=== PATIENT | male | born 1985 | race Two or more races ===

== ENCOUNTER 2017-03-16 00:57 | Inpatient (IN) | payer OTHER ==
[~2017-03-16] VITALS: Ht 182.9 cm; Wt 119.7 kg
--- NOTE | 2017-03-16 01:03 | NUR ---
PT BIB [facility] WITH A C/O RLE PAIN. 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 PT STATED THAT THE AMPUTATION WAS JUST THIS PAST OCTOBER AND THEN HE GOT OSTEOMYLITIS AND HAS A FURTHER AMUPUTATION. PT IS WORRIED THAT THERE MAY BE SOMETHING WRONG AND WANTS TO MAKE SURE THAT HE DOES NOT HAVE OSTEOMYLITIS AGAIN. PT WAS AT A TREATMENT CENTER TO GET OFF THE PAIN MEDICATION FROM SX. PT STATED THAT HE HAS BEEN TAKING IBUPROPHEN AND TYLENOL FOR THE PAIN. PT STATED THAT THE PAIN IS NOW 9/10.
--- NOTE | 2017-03-16 01:05 | NUR ---
DR. SANDY IS AT THE BEDSIDE.
--- NOTE | 2017-03-16 01:15 | NUR ---
XRAY IN PROGRESS AT THE BEDSIDE.
--- NOTE | 2017-03-16 01:16 | NUR ---
BLOOD DRAWN AND BLOOD CULTURES X2 DRAWN.
[2017-03-16] MEDS ORDERED: ONDANSETRON HCL/PF 4 MG/2 ML VIAL ONE (01:18)
[2017-03-16] MEDS ORDERED: MORPHINE SULFATE INJ 4 MG/ML DISP.SYRIN ONE (01:18)
--- NOTE | 2017-03-16 01:23 | NUR ---
PT REC'ING MEDICATION ORDERED.
[2017-03-16 01:24] LABS: BASOPHILS % (AUTO) 0.3 % (0.0-2.0); EOSINOPHILS # (AUTO) 0.9 /CMM (0.0-0.7); EOSINOPHILS % (AUTO) 5.5 % (0.0-6.0); HEMATOCRIT 35 % (39-51); HEMOGLOBIN 11.2 g/dL (13.5-17.5); LYMPHOCYTES # (AUTO) 2.5 /CMM (0.8-4.8); MEAN CORPUSCULAR HEMOGLOBIN 25 PG (26.0-33.0); MEAN CORPUSCULAR HGB CONC 32 g/dl (31.0-36.0); MEAN CORPUSCULAR VOLUME 77 fL (80-96); MONOCYTES # (AUTO) 1.2 /CMM (0.1-1.30); MONOCYTES % (AUTO) 7.3 % (2.0-12.0); NEUTROPHILS # (AUTO) 11.9 /CMM (1.8-8.9); NEUTROPHILS % (AUTO) 71.9 % (43.0-81.0); PLATELET COUNT (AUTO) 377 /CMM (150-450); RDW COEFFICIENT OF VARIATION 16.3 (11.5-15.0); WHITE BLOOD COUNT (AUTO) 16.5 K/uL (4.3-11.0)
[2017-03-16] MEDS ORDERED: ONDANSETRON HCL/PF 4 MG/2 ML VIAL IV ONE (01:30)
[2017-03-16] MEDS ORDERED: MORPHINE SULFATE INJ 2 MG/ML DISP.SYRIN IV ONE (01:30)
[2017-03-16 01:39] LABS: INR 0.95 (0.87-1.13); PROTHROMBIN TIME 9.9 SECS (9.5-12.7)
[2017-03-16 01:41] LABS: CALCIUM, SERUM 9.1 mg/dL (8.5-10.1); CREATININE 0.9 mg/dL (0.6-1.3); POTASSIUM 3.3 mmol/L (3.5-5.1)
[2017-03-16 01:47] LABS: ALBUMIN 3.6 g/dL (3.4-5.0); BILIRUBIN,TOTAL 0.2 mg/dL (0.2-1.0); TOTAL PROTEIN, SERUM 7.1 g/dL (6.4-8.2)
[2017-03-16] MEDS ORDERED: LINEZOLID RTU BAG 600 MG in PREMIX 1 EA IV SCH (02:00)
[2017-03-16] MEDS ORDERED: CEFTRIAXONE 1GM BAG (ER ONLY) 1 GM/50 ML PIGGYBACK IV ONE (02:00)
[2017-03-16] MEDS ORDERED: CEFTRIAXONE 1 G VIAL ONE (02:05)
--- NOTE | 2017-03-16 02:12 | NUR ---
CALLING REPOR TO CURT BELTRE
--- NOTE | 2017-03-16 02:18 | NUR ---
ENDORSING ZYVOX INFUSION TO MS CURT.
[2017-03-16] MEDS ORDERED: ACETAMINOPHEN 325 MG TABLET PO PRN (02:30)
[2017-03-16] MEDS ORDERED: Z GUARD REMEDY 2 OZ OINT TP PRN (02:30)
[2017-03-16] MEDS ORDERED: ZOLPIDEM TARTRATE 5 MG TABLET PO PRN (02:30)
[2017-03-16] MEDS ORDERED: MAGNESIUM HYDROXIDE 30 ML UDC PO PRN (02:30)
[2017-03-16] MEDS ORDERED: HYDROCODONE/APAP 5/325MG 1 EACH TABLET PO PRN (02:30)
[2017-03-16] MEDS ORDERED: ONDANSETRON HCL/PF 4 MG/2 ML VIAL IVP PRN (02:30)
--- NOTE | 2017-03-16 02:30 | NUR ---
MS RN NOTE RECEIVED PATIENT AWAKE AND ALERT IN BED. NO SOB NOTED. PATIENT STATES THAT HE IS HAVING 9/10 PAIN TO RIGHT STUMP. RELAXATION TECHNIQUES PROVIDED. PATIENT STATES THAT NORCO 10/325MG DOESN'T WORK FOR HIM. HE WOULD LIKE MORPHINE. WILL NOTIFY MD. ALL BELONGINGS CHECKED AND ACCOUNTED FOR. ORIENTED TO ROOM AND TO UNIT. BED LOCKED AND IN LOWEST POSITION. SIDE RAILS UP, CALL LIGHT WITHIN REACH. WILL CONTINUE TO MONITOR.
[2017-03-16 02:40] VITALS: BP 134/71
[2017-03-16] MEDS ORDERED: LINEZOLID RTU BAG 300 ML IV ONE (02:58)
[2017-03-16] MEDS: IV NS 0.9% 1,000 ML IV PRN (03:11)
[2017-03-16] MEDS ORDERED: HYDROCODONE/APAP 10/325MG 1 EA TABLET ONE (03:14)
[2017-03-16] MEDS: HYDROCODONE/APAP 10/325MG 1 EA TABLET PO PRN (03:16)
[2017-03-16] MEDS ORDERED: MORPHINE SULFATE INJ 2 MG/ML DISP.SYRIN ONE (04:02)
[2017-03-16] MEDS ORDERED: PIPERACILLIN /TAZOBACTAM 2.25 G VIAL IV ONE (04:07)
[2017-03-16] MEDS: MORPHINE SULFATE INJ 2 MG/ML DISP.SYRIN IV PRN ×8 (04:15→23:57)
[2017-03-16] MEDS ORDERED: PIPERACILLIN /TAZOBACTAM 4.5 G in IV D5W 50 ML IV SCH (05:00)
[2017-03-16] MEDS ORDERED: IBUP-1958 PO (05:46)
[2017-03-16] MEDS ORDERED: LEVO750T46 PO (05:46)
[2017-03-16] MEDS ORDERED: GABA-534 PO (05:46)
[2017-03-16] MEDS ORDERED: DOXE50CA4 PO (05:46)
[2017-03-16] MEDS ORDERED: DULO60CA45 PO (05:46)
[2017-03-16] MEDS ORDERED: PRAZ5CAP2 PO (05:46)
[2017-03-16] MEDS ORDERED: AMLO5TAB2 PO (05:46)
[2017-03-16] MEDS ORDERED: CYCL10TA9 PO (05:46)
[2017-03-16] MEDS ORDERED: LITH300T PO (05:46)
[2017-03-16] MEDS ORDERED: HYDR10SY12 GT (05:46)
[2017-03-16] MEDS ORDERED: ARIP5TAB10 PO (05:46)
--- NOTE | 2017-03-16 06:40 | NUR ---
MS RN NOTE PATIENT STABLE. SLEEPING AT THIS TIME. ALL NEEDS MET AND ATTENDED TO. WILL ENDORSE TO DAY SHIFT FOR NAZARIO.
[2017-03-16 08:00] VITALS: BP 119/68
--- NOTE | 2017-03-16 08:00 | NUR ---
MS RN NOTES PATIENT IN BED RESTING NO SOB OR ACUTE DISTRESS. PATIENT ALERT, ORIENTED X4. IN BED RESTING. REPORTS PAIN 9/10. WILL WORK WITH PATIENT TO MANAGE PAIN. BED IN LOW LOCKED POSITION , CALL LIGHT WITHIN REACH. WILL CONTINUE TO MONITOR.
--- NOTE | 2017-03-16 09:00 | NUR ---
MS RN NOTES PATIENT REPORTS MORPHINE 2MG IS NOT EFFECTIVE TO CONTROL HIS PAIN, PATIENT STATES HE WAS USING FENTANYL PATCH AT HOME. CALLED DR. NORTON STATES TO CONTINUE FENTANYL PATCH HE WAS TAKING FENTANYL AT HOME. PATIENT REFUSED FENTANYL PATCH REQUEST MORPHINE TO BE INCREASED TO 4MG EVERY [address] NORTON STATES TO CONTINUE MORPHINE 2MG OR FENTANYL PATCH PATIENT REFUSES FENTANYL PATCH WANTS TO CONTINUE MORPHINE 2MG. NOTED AND CARRIED OUT.
[2017-03-16] MEDS: LINEZOLID RTU BAG 600 MG in PREMIX 1 EA IV SCH ×2 (09:15→20:01)
[2017-03-16] MEDS ORDERED: POTASSIUM CHLORIDE 20 MEQ TAB.PRT.SR PO ONE (10:00)
[2017-03-16] MEDS: MAG HYDROX/AL HYDROX/SIMETH 30 ML UDC PO PRN (11:24)
[2017-03-16] MEDS: PIPERACILLIN /TAZOBACTAM 3.375 G in IV D5W 50 ML IV SCH ×3 (12:23→23:57)
--- NOTE | 2017-03-16 12:30 | NUR ---
MS RN NOTES PATIENT SEEN AND EVALUATED BY DR. NORTON ORDERS NOTED AND CARRIED OUT.
[2017-03-16 12:55] LABS: IRON, SERUM 31 ug/dl (50-175); TOTAL IRON BINDING CAPACITY 377 ug/dl (250-450)
[2017-03-16 16:00] VITALS: BP 145/81
[2017-03-16] MEDS ORDERED: DOXEPIN HCL 10 MG CAPSULE PO PRN (19:30)
[2017-03-16] MEDS ORDERED: IBUPROFEN 800 MG TABLET PO PRN (19:30)
--- NOTE | 2017-03-16 19:30 | NUR ---
RN NOT; RECEIVED PT IN BED AWAKE AND ALERT. ANXIOUS TO RECEIVE PAIN MEDICATION. HOWEVER RIGHT TUMB IV PAINFUL UPON INFUSION. AWAITING FOR MIDLINE INSERTION. NEEDS ATTENDED. BED LOW LOCKED. CALL LIGHT WITHIN REACH. WILL CONT TO MONITOR,
--- NOTE | 2017-03-16 19:34 | NUR ---
MS RN NOTES PATIENT IN BED RESTING NO SOB OR ACUTE DISTRESS NOTED. ALL DUE MEDICATIONS ADMINISTERED. ALL NEEDS MET . ENDORSED CARE TO PM SHIFT.
--- NOTE | 2017-03-16 19:53 | NUR ---
MIDLINE WAS INSERTED BY ALVARO ELIAS AT THE BED SIDE. PT TOLERATED THE PROCEDURE W/ GOOD BLOOD DRAW BACK. MORPHINE 2MG GIVE ORDERED PER PT'S REQUEST. WILL CONT TO MONITOR.
[2017-03-16 20:00] VITALS: BP 150/76
--- NOTE | 2017-03-16 21:47 | NUR ---
PT IS CONSTANTLY ASKING FOR ZYPREXA. PER HIM HE TAKES 10MG OF ZYPREXA AT BED TIME TO HELP HIM TO SLEEP. MEDICATION WAS NOT REPORTED IN MED RECON UPON ADMISSION. DISCUSSED W/ DR. GRANT ON THE FLOOR AND RELAYED THE CONCERN. DR. GRANT W/ A NEW ORDER FOR X1 ZYPREXA TONIGHT AND TO BE CLARIFIED IN AM W/ HIS MED RECON AND THE PHARMACY.
[2017-03-16] MEDS ORDERED: OLANZAPINE 10 MG TABLET ONE (21:49)
--- NOTE | 2017-03-16 21:55 | NUR ---
MORPHINE 2MG GIVE ORDERED PER PT'S REQUEST. WILL CONT TO MONITOR.
[2017-03-16] MEDS ORDERED: OLANZAPINE 10 MG TABLET PO ONE (22:00)
--- NOTE | 2017-03-16 23:57 | NUR ---
MORPHINE 2MG GIVE ORDERED PER PT'S REQUEST FOR C/O RIGHT KNEE/ STUMP PAIN. WILL CONT TO MONITOR.
[2017-03-17] MEDS: MORPHINE SULFATE INJ 2 MG/ML DISP.SYRIN IV PRN ×5 (02:10→10:46)
--- NOTE | 2017-03-17 02:10 | NUR ---
MORPHINE 2MG GIVE ORDERED PER PT'S REQUEST FOR C/O RIGHT KNEE/ STUMP PAIN. WILL CONT TO MONITOR.
--- NOTE | 2017-03-17 04:18 | NUR ---
MORPHINE 2MG GIVE ORDERED PER PT'S REQUEST FOR C/O RIGHT KNEE/ STUMP PAIN. WILL CONT TO MONITOR.
[2017-03-17] MEDS: PIPERACILLIN /TAZOBACTAM 3.375 G in IV D5W 50 ML IV SCH ×3 (06:20→17:19)
[2017-03-17 06:57] LABS: BASOPHILS % (AUTO) 0.2 % (0.0-2.0); EOSINOPHILS % (AUTO) 5.4 % (0.0-6.0); HEMATOCRIT 37 % (39-51); LYMPHOCYTES # (AUTO) 2.2 /CMM (0.8-4.8); LYMPHOCYTES % (AUTO) 12.7 % (20.0-44.0); MEAN CORPUSCULAR HEMOGLOBIN 25 PG (26.0-33.0); MEAN CORPUSCULAR HGB CONC 33 g/dl (31.0-36.0); MEAN CORPUSCULAR VOLUME 77 fL (80-96); MONOCYTES % (AUTO) 5.9 % (2.0-12.0); NEUTROPHILS # (AUTO) 13.4 /CMM (1.8-8.9); NEUTROPHILS % (AUTO) 75.8 % (43.0-81.0); PLATELET COUNT (AUTO) 325 /CMM (150-450); RDW COEFFICIENT OF VARIATION 16.1 (11.5-15.0); RED BLOOD CELL COUNT(AUTO) 4.79 MIL/uL (4.5-6.0); WHITE BLOOD COUNT (AUTO) 17.7 K/uL (4.3-11.0)
[2017-03-17 07:23] LABS: CALCIUM, SERUM 9.3 mg/dL (8.5-10.1); CREATININE 0.8 mg/dL (0.6-1.3); MAGNESIUM 2.3 mg/dL (1.8-2.4); PHOSPHORUS 4.3 mg/dL (2.5-4.9); POTASSIUM 4.1 mmol/L (3.5-5.1)
[2017-03-17 07:27] LABS: THYROID STIMULATING HORMONE 1.325 uIU/mL (0.358-3.74)
[2017-03-17 08:00] VITALS: BP 145/76
[2017-03-17] MEDS: DULOXETINE HCL 30 MG CAPSULE.DR PO SCH (08:27)
[2017-03-17] MEDS: ARIPIPRAZOLE 5 MG TABLET PO SCH (08:27)
[2017-03-17] MEDS: GABAPENTIN 300 MG CAPSULE PO SCH ×3 (08:27→16:45)
[2017-03-17] MEDS: LITHIUM CARBONATE 150 MG CAPSULE PO SCH (08:27)
[2017-03-17] MEDS: AMLODIPINE BESYLATE 5 MG TABLET PO SCH (08:28)
--- NOTE | 2017-03-17 09:00 | NUR ---
MS RN OPENING NOTE RECEIVED REPORT FROM CURT TAPIA. PATIENT IS ALERT AND ORIENTED x4. NO PAIN AT THIS TIME. NO SOB OR DISTRESS NOTED. CALL LIGHT WITHIN REACH. SAFETY MEASURES IMPLEMENTED. WILL CONTINUE TO MONITOR
[2017-03-17] MEDS: LINEZOLID RTU BAG 600 MG in PREMIX 1 EA IV SCH ×2 (09:31→20:55)
[2017-03-17] MEDS: MAG HYDROX/AL HYDROX/SIMETH 30 ML UDC PO PRN (09:32)
[2017-03-17] MEDS: CYCLOBENZAPRINE 10 MG TABLET PO PRN ×2 (09:43→21:09)
[2017-03-17] MEDS: ALPRAZOLAM 0.25 MG TABLET PO PRN ×2 (12:18→18:42)
[2017-03-17] MEDS: MORPHINE SULFATE INJ 2 MG/ML DISP.SYRIN IVP PRN ×6 (12:18→22:53)
--- NOTE | 2017-03-17 15:46 | NUR ---
Pt. came to Social service office inquiring about transfer to [facility]. JOSE informed pt. that he would have to talk to case management regarding the transfer. Pt. stated that he did speak with them this am. JOSE informed pt. that a consult has been ordered for infectious disease to see him prior to transfer. Pt. understood. Pt. is a and has PTSD. Pt. stated that he is feeling anxious. JOSE requested if pt. would like to see a psychiatrist and pt. stated "yes". JOSE informed [facility] [place] to place a psych. consult for pt. Pt. is originally from [place]. Pt. 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 Prior to coming to [facility] pt. was at [facility] ED and was discharged. Pt. then came to [facility] ED. Pt. is non-ambulatory and wheelchair bound. Pt. stated that having patient in the next room who is screaming does not help him with his PTSD and is making him more anxious. JOSE spoke to CURT Peck who accompanied pt. outside for some fresh air.
--- NOTE | 2017-03-17 15:50 | NUR ---
MS RN NOTE PATIENT IS BECOMING VERY ANXIOUS. YELLING AT OTHER PATIENT IN 208 TELLING THEM " SHUT THE FUCK UP ALREADY I HAVE PTSD". PATIENT BEGAN TO LEAVE IN WHEELCHAIR AWAY FROM UNIT. NURSE WENT WITH HIM DOWNSTAIRS TO GET FRESH AIR. AFTER RETURNING PATIENT IS CALM AND EXPRESSES FEELINGS OF STRESS. WILL CONTINUE TO MONITOR
[2017-03-17 16:00] VITALS: BP 137/73
[2017-03-17] MEDS ORDERED: hydrOXYzine HCL SYRUP 10 MG/5 ML UDC GT PRN (16:29)
[2017-03-17] MEDS: LACTOBACILLUS RHAMNOSUS GG 1 EACH CAP.SPRINK PO SCH (16:45)
[2017-03-17] MEDS: IBUPROFEN 200 MG TABLET PO PRN (17:33)
[2017-03-17] MEDS ORDERED: PRAZOSIN HCL 1 MG CAPSULE PO SCH ×2 (18:00→21:00)
[2017-03-17] MEDS: IV NS 0.9% 1,000 ML IV PRN (18:42)
--- NOTE | 2017-03-17 19:08 | NUR ---
MS RN CLOSING NOTE PATIENT IS ALERT AND ORIENTED x4. NO PAIN AT THIS TIME. NO SOB OR DISTRESS NOTED. CALL LIGHT WITHIN REACH AT ALL TIMES. SAFETY MEASURES IMPLEMENTED. ABLE TO COMMUNICATE NEEDS. ALL DUE MEDICATIONS GIVEN ORDERED. ALL NURSING CARE NEEDS ATTENDED TO. MARYLOU MIDLINE INTACT AND PATENT NO REDNESS OR SWELLING NOTED. IV FLUIDS RUNNING AT THIS TIME. HAS RIGHT BKA. PATIENT WILL BE MOVED FROM 207-2 TO 204-2. WILL NOTIFY PATHOLOGY TRANSCRIPTIONIST NURSE FOR NAZARIO
[2017-03-17 20:00] VITALS: BP 130/74
--- NOTE | 2017-03-17 20:00 | NUR ---
MS2/RN PATIENT AWAKE, ALERT, ORIENTED, COMFORTABLE, WILL MONITOR.
--- NOTE | 2017-03-17 21:36 | NUR ---
MS2/RN PER PATIENT HE IS TAKING ZYPREXA 10 MG PO QHS AT HOME AT WANTS TO TAKE IT TONIGHT. OBTAINED ORDER ZYPREXA 10 MG PO X [address] JUANITA SANDOVAL.
[2017-03-17] MEDS ORDERED: OLANZAPINE 10 MG TABLET PO ONE (22:00)
[2017-03-17] MEDS ORDERED: OLANZAPINE 10 MG TABLET ONE (22:04)
[2017-03-18] MEDS: PIPERACILLIN /TAZOBACTAM 3.375 G in IV D5W 50 ML IV SCH (00:11)
--- NOTE | 2017-03-18 00:22 | NUR ---
MS2/RN PATIENT IS SLEEPING AT THIS TIME, EASILY AROUSABLE, APPEAR COMFORTABLE, NO SIGNS OF DISTRESS NOTED, CALL LIGHT IN REACH. WILL CONTINUE TO MONITOR.
[2017-03-18] MEDS: MORPHINE SULFATE INJ 2 MG/ML DISP.SYRIN IVP PRN (01:16)
[2017-03-18] MEDS ORDERED: MEROPENEM 1 G VIAL IV ONE (03:26)
[2017-03-18] MEDS: HYDROCODONE/APAP 10/325MG 1 EA TABLET PO PRN ×2 (04:19→08:49)
--- NOTE | 2017-03-18 04:21 | NUR ---
MS/RN PATIENT IS AWAKE ASKING FOR MORPHINE. MORPHINE ORDERED NOTED DISCONTINUED. CALLED AND SPOKE TO DR. JUANITA SANDOVAL WITH NO ORDER RECEIVED. PER DR. GRANT, NO MORE MORPHINE FOR THE PATIENT.
--- NOTE | 2017-03-18 04:42 | NUR ---
MS2/RN PATIENT RECEIVED NORCO. PATIENT WANTED TO GO SMOKE AFTERWARDS, TOLD PATIENT THAT PER HOSPITAL POLICY HE CAN NOT GO DOWN TO SMOKE AT THIS TIME. PATIENT INSISTED OF GOING DOWN. FISH CHECKER WAS CALLED. PER FISH CHECKER, PATIENT WAS DOWN AND SMOKED. PATIENT CAME BACK AFTER FEW MINUTES WITH THE SECURITY GUARDS. PATIENT WANTS TO TALK TO THE DOCTOR. TOLD PATIENT THAT THE DRReji WILL BE HERE TODAY. PATIENT VERBALIZED GOING AGAINST [facility] ([facility]) AND WANTS TO GET BACK HIS MEDICATIONS THAT WERE SENT TO PHARMACY. INFORMED PATIENT THAT PHARMACY IS STILL CLOSED AT THIS TIME. INFORMED PATIENT OF THE RISKS OF GOING AMA. PATIENT WENT BACK TO HIS ROOM. WILL CONTINUE TO MONITOR.
[2017-03-18] MEDS: MEROPENEM 1 G in IV NS 0.9% 100 ML IV SCH ×2 (04:56→13:00)
[2017-03-18] MEDS ORDERED: VANCOMYCIN HCL 125 MG/2.5 ML ORAL.SUSP PO SCH (06:00)
--- NOTE | 2017-03-18 06:00 | NUR ---
MS2/RN VANCOMYCIN NOT GIVEN DUE TO VANCOMYCIN ALLERGY. WILL WAIT FOR THE PHARMACY TO EVALUATE.
[2017-03-18] MEDS: IBUPROFEN 200 MG TABLET PO PRN (06:17)
[2017-03-18] MEDS: ALPRAZOLAM 0.25 MG TABLET PO PRN (06:17)
--- NOTE | 2017-03-18 06:17 | NUR ---
MS2/RN C/O ANXIETY, XANAX PO WAS GIVEN ORDERED. ALSO C/O PAIN RT. LEG STUMP 10/04, IBUPROFEN 8 MG PO WAS GIVEN.
--- NOTE | 2017-03-18 06:25 | NUR ---
MS2/RN PATIENT IS NOT IN THE ROOM AT THIS TIME, CALLED THE SECURITY AT [facility] WHO SAID THAT THE PATIENT IS OUTSIDE SMOKING. I ASKED THE RESPIRATORY THERAPY ASSISTANT TO GO DOWN TO ACCOMPANY THE PATIENT.
[2017-03-18 06:30] LABS: BASOPHILS % (AUTO) 0.2 % (0.0-2.0); EOSINOPHILS # (AUTO) 0.7 /CMM (0.0-0.7); EOSINOPHILS % (AUTO) 3.7 % (0.0-6.0); HEMATOCRIT 38 % (39-51); HEMOGLOBIN 12.3 g/dL (13.5-17.5); LYMPHOCYTES # (AUTO) 2.1 /CMM (0.8-4.8); LYMPHOCYTES % (AUTO) 10.7 % (20.0-44.0); MEAN CORPUSCULAR HEMOGLOBIN 25 PG (26.0-33.0); MEAN CORPUSCULAR HGB CONC 32 g/dl (31.0-36.0); MEAN CORPUSCULAR VOLUME 78 fL (80-96); MONOCYTES # (AUTO) 1.2 /CMM (0.1-1.30); MONOCYTES % (AUTO) 6.2 % (2.0-12.0); NEUTROPHILS # (AUTO) 15.3 /CMM (1.8-8.9); NEUTROPHILS % (AUTO) 79.2 % (43.0-81.0); PLATELET COUNT (AUTO) 378 /CMM (150-450); RDW COEFFICIENT OF VARIATION 15.7 (11.5-15.0); RED BLOOD CELL COUNT(AUTO) 4.91 MIL/uL (4.5-6.0); WHITE BLOOD COUNT (AUTO) 19.3 K/uL (4.3-11.0)
--- NOTE | 2017-03-18 06:30 | NUR ---
MS2/RN PATIENT IS BACK WITH THE JEWELRY COATER. ALL NEEDS ATTENDED AT THIS TIME, WILL CONTINUE TO MONITOR.
--- NOTE | 2017-03-18 07:05 | NUR ---
MS RN OPENING NOTES RECEIVED PT FROM NIGHTSHIFT NURSE IN STABLE CONDITION. PT IS A/O X4. NO SOB NOTED. BREATHING IS EVEN AND UNLABORED. PT STATES THAT HE IS IN PAIN, WILL ADMINISTER PRN PAIN MEDICATION. MIDLINE NOTED IN RIGHT UPPER ARM. MIDLINE IS PATENT AND INTACT. NO REDNESS OR SIGNS OF INFILTRATION NOTED. BED IN LOW LOCKED POSITION, SIDE RIALS UP X2, CALL LIGHT WITHIN REACH. WILL CONTINUE TO MONITOR
[2017-03-18 07:07] LABS: CALCIUM, SERUM 9.2 mg/dL (8.5-10.1); MAGNESIUM 2.2 mg/dL (1.8-2.4); PHOSPHORUS 3.5 mg/dL (2.5-4.9); POTASSIUM 3.6 mmol/L (3.5-5.1)
[2017-03-18] MEDS: CYCLOBENZAPRINE 10 MG TABLET PO PRN (07:43)
[2017-03-18 08:05] VITALS: BP 131/68
[2017-03-18] MEDS: LINEZOLID RTU BAG 600 MG in PREMIX 1 EA IV SCH (08:46)
[2017-03-18] MEDS: GABAPENTIN 300 MG CAPSULE PO SCH ×2 (08:47→12:08)
[2017-03-18] MEDS: ARIPIPRAZOLE 5 MG TABLET PO SCH (08:47)
[2017-03-18] MEDS: LACTOBACILLUS RHAMNOSUS GG 1 EACH CAP.SPRINK PO SCH (08:47)
[2017-03-18] MEDS: LITHIUM CARBONATE 150 MG CAPSULE PO SCH (08:47)
[2017-03-18 08:48] VITALS: BP 131/68
[2017-03-18] MEDS: DULOXETINE HCL 30 MG CAPSULE.DR PO SCH (08:48)
[2017-03-18] MEDS: AMLODIPINE BESYLATE 5 MG TABLET PO SCH (08:48)
--- NOTE | 2017-03-18 11:19 | NUR ---
MS RN NOTES DR. HAMM IN ROOM WITH PT
--- NOTE | 2017-03-18 11:55 | NUR ---
MS RN NOTES PT CONTINUE TO COMPLAIN OF PAIN. PER DR NORTON PT CAN HAVE A ONE TIME DOES OF MORPHINE 2MG, THEN CALL DR. PARISH FOR PAIN MANAGEMENT CONSULT. WILL CARRY OUT ORDERS
[2017-03-18] MEDS ORDERED: ALPRAZOLAM 0.25 MG TABLET PO PRN (12:00)
[2017-03-18] MEDS ORDERED: MORPHINE SULFATE INJ 2 MG/ML DISP.SYRIN IV ONE (12:00)
--- NOTE | 2017-03-18 12:34 | NUR ---
MS RN NOTES CALLED MADE TO DR. PARISH IN REGARDS TO PAIN CONSULT. VOICEMAIL WAS LEFT. AWAITING CALL BACK
[2017-03-18] MEDS ORDERED: LITHIUM CARBONATE 150 MG CAPSULE PO SCH (13:00)
--- NOTE | 2017-03-18 13:33 | NUR ---
MS RN NOTES PT STATES THAT HE WILL LIKE TO LEAVE AMA. DR. NORTON MADE AWARE. RISKS WITH LEAVING AMA DISCUSSED WITH PT BUT HE STATES THAT "I NEED TO CATCH A FLIGHT BACK HOME AND IT'S NOT WORTH IT TO STAY HERE ANY LONGER". DR. PARISH WAS CONTACTED TO CANCELL PAIN CONSULTATION. NURSING LANDSCAPE ARCHITECT AND PLANNER MADE AWARE. DEMARCUS FROM CASE MANAGEMENT STATES THAT HE WILL PREPARE A TAXI VOUCHER FOR THE PT AND OBTAIN PRESCRIPTION FROM DR. NORTON
--- NOTE | 2017-03-18 16:33 | NUR ---
MS CURT AMA NOTES PT LEFT AMA. THE RISKS OF LEAVING WERE DISCUSSED WITH PT BY THE PHYSICIAN AND MYSELF. PT STATED "I NEED TO CATCH A FLIGHT BACK HOME AND IT'S NOT WORTH IT TO STAY HERE ANY LONGER". AMA FORM WAS SIGNED BY THE PT. HE LEFT THE FACILITY WITH [employer] AND INSTRUCTIONS TO FOLLOW UP WITH HIS PRIMARY CARE PHYSICIAN SOON POSSIBLE. PT VERBALIZED UNDERSTANDING OF INSTRUCTIONS. HE LEFT WITH ALL HIS BELONGINGS INCLUDING A PRESCRIPTION FORM AND ALL HOME MEDICATIONS. PT STATED THAT HE WILL DIRECTOR OF MEDICAL STAFF SERVICES HIS PRESCRIPTIONS AT A LATER TIME. HE MADE A PREVIOUS ATTEMPT TO GET THEM FILLED AT [facility] BUT THEY WERE UNABLE TO GIVE HIM THE NORCO. MIDLINE SUCCESSFULLY REMOVED WITHOUT ANY ADVERSE EFFECTS. PT ID BAND REMOVED. HE WAS ESCORTED BY THE BUSINESS SYSTEMS CONSULTANT TO HIS TAXI AND LEFT TO LAX SAFELY. INCIDENT REPORT COMPLETED: [id number].
== END 2017-03-18 15:00 | disposition left against medical advice (07) | DRG 565 ==
LOC: ER 00:59 → MEDSG2 02:07
PROC: 05H533Z Insertion of Infusion Device into Right Subclavian Vein, Percutaneous Approach (ICD-10-PCS; principal; 2017-03-16)
DX: T87.43 Infection of amputation stump, right lower extremity (principal); D68.59 Other primary thrombophilia; M86.8X6 Other osteomyelitis, lower leg; F11.20 Opioid dependence, uncomplicated; D50.9 Iron deficiency anemia, unspecified; F17.210 Nicotine dependence, cigarettes, uncomplicated; E66.9 Obesity, unspecified; Y92.009 Unspecified place in unspecified non-institutional (private) residence as the place of occurrence of the external cause; Y83.8 Other surgical procedures as the cause of abnormal reaction of the patient, or of later complication, without mention of misadventure at the time of the procedure; E78.5 Hyperlipidemia, unspecified; E87.6 Hypokalemia; F31.9 Bipolar disorder, unspecified; I10 Essential (primary) hypertension; G89.29 Other chronic pain; D63.8 Anemia in other chronic diseases classified elsewhere; Z68.35 Body mass index [BMI] 35.0-35.9, adult; F43.10 Post-traumatic stress disorder, unspecified; Z86.14 Personal history of Methicillin resistant Staphylococcus aureus infection
CPT/HCPCS: 36415; 73564-TC; 80048-TC; 80061-TC; 80076-TC; 83540-TC; 83605-TC; 83735-TC; 84100-TC; 84443-TC; 85025-TC; 85652-TC; 85730-TC; 87040-TC; 87081-TC; A4216; A4606; J0696; J2020; J2185; J2270; J2405; J2543; J7030; J7060; Q0177; Z7610